=== PATIENT | female | born 1995 | race Asian ===

== ENCOUNTER → 2025-02-24 | Outpatient (CLI) | payer OTHER, SELFPAY ==
[2025-02-24 09:41] LABS: HCG Qualitative,Urine Negative
== END | disposition home or self-care (01) ==
LOC: SCAT 08:57
PROVIDERS: PCP Family Medicine; Referring Provider Family Medicine; Visit Provider Family Medicine
DX: Z53.8 Procedure and treatment not carried out for other reasons (principal); Z32.00 Encounter for pregnancy test, result unknown
CPT/HCPCS: 81025